=== PATIENT | female | born 1965 | race American Indian/Alaskan Native ===

== ENCOUNTER 2018-04-10 06:54 | Day surgery (SDC) | payer BC ==
[2018-04-10 06:58] VITALS: BMI 30.5
[2018-04-10] MEDS ORDERED: Midazolam 2 MG/2 ML VIAL ONE (07:17)
[2018-04-10] MEDS ORDERED: Propofol 10 mg/ml Inj (20 ML) ONE ×2 (07:17→09:13)
[2018-04-10] MEDS ORDERED: Succinylcholine 200 mg/10 ml Inj IV ONE (07:18)
[2018-04-10] MEDS ORDERED: Lidocaine 4% (Laryng-O-Jet) Kit MM ONE (07:18)
[2018-04-10] MEDS ORDERED: ePHEDrine 50 mg/ml Inj ONE (07:18)
[2018-04-10 07:29] VITALS: RESP 18
[2018-04-10 07:45] LABS: BLOOD UREA NITROGEN 13 mg/dl (7-17); CALCIUM 9.4 mg/dL (8.4-10.2); GFR NON-AFRICAN AMERICAN > 60
[2018-04-10 07:47] LABS: BASO % 0.4 % (0.0-2.0); EOS # 0.2 K/uL (0.0-0.7); EOS % 3.7 % (0.0-4.0); HEMOGLOBIN 13.3 g/dL (12.0-16.0); LYMPH # 1.5 K/uL (1.0-4.3); LYMPH % 26.6 % (20.0-40.0); MEAN CELL VOLUME 89.6 fl (81.0-99.0); MEAN CORPUSCULAR HEMOGLOBIN 29.9 pg (27.0-31.0); MEAN CORPUSCULAR HGB CONC 33.4 g/dL (33.0-37.0); MEAN PLATELET VOLUME 8.2 fl (7.2-11.7); MONO # 0.6 K/uL (0.0-0.8); MONO % 10.5 % (0.0-10.0); NEUT # 3.4 K/uL (1.8-7.0); NEUT % 58.8 % (50.0-75.0); NRBC % 0.1 % (0.0-0.0); RBC 4.43 Mil/uL (3.80-5.20); RED CELL DISTRIBUTION WIDTH 14.4 % (11.5-14.5); WHITE BLOOD COUNT 5.8 K/uL (4.8-10.8)
[2018-04-10] MEDS ORDERED: Lactated Ringer's 1,000 ML IV ONE (08:30)
[2018-04-10] MEDS ORDERED: cefOXitin IV 1 gm in Dextrose 1 GM/50 ML BAG IVPB ONE (08:30)
[2018-04-10] MEDS ORDERED: Dexamethasone 4 mg/1 ml ONE (08:57)
[2018-04-10] MEDS ORDERED: HYDROmorphone 0.5 mg/0.5 ml ISec IVP PRN (09:31)
[2018-04-10] MEDS ORDERED: Lactated Ringer's 1,000 ML IV SCH (09:45)
[2018-04-10 12:17] VITALS: BP 139/90; PULSE 93; TEMP 98.2; O2SAT 97
--- NOTE | 2018-04-10 13:26 | CARD ---
APPROVED REPORT Date of service: 04/10/2018 EKG Measurement Heart [id number] <Conclusion> Normal sinus rhythm Normal ECG
--- NOTE | 2018-04-13 07:50 | OP ---
PROCEDURE DATE: 04/10/2018 PREOPERATIVE DIAGNOSES: Abnormal urine bleeding and thickened endometrium. POSTOPERATIVE DIAGNOSES: Abnormal urine bleeding and thickened endometrium, pending pathology. SURGEON: Rios Houston MD ANESTHESIA ADMINISTERED BY: Chelsea Pérez MD ANESTHESIA: General anesthesia. PROCEDURE: Hysteroscopy with MyoSure and dilatation and curettage. FINDINGS: Moderate amount of tissue and what looked like a polypoid lesion. All of these were removed during the procedure and sent to Pathology. The patient tolerated the procedure well. The blood loss was minimal. After this was done, the patient was in satisfactory condition and on the way to recovery room. Rios Houston MD
== END 2018-04-10 12:25 | disposition home or self-care (01) ==
LOC: H.OPSURG 06:54
PROVIDERS: ATTEND Specialist
DX: D25.2 Subserosal leiomyoma of uterus (principal); R93.89 Abnormal findings on diagnostic imaging of other specified body structures; E03.9 Hypothyroidism, unspecified; I10 Essential (primary) hypertension; N84.1 Polyp of cervix uteri
CPT/HCPCS: 36415; 58558; 80048; 85025; 88305; 93005; J0330; J0694; J1100; J1885; J2001; J2250; J2405; J2704; J3010; J7030; J7120